=== PATIENT | male | born 1985 | race Caucasian/White ===

== ENCOUNTER → 2017-01-31 | Outpatient (CLI) | payer OTHER ==
--- NOTE | 2017-01-31 16:06 | RADRPT ---
EXAM DATE/TIME: 01/31/2017 15:10 [place] COMPARISON: No previous studies available for comparison. INDICATIONS : Abdominal discomfort. MEDICAL HISTORY : Abdominal pain. Kidney reflux. SURGICAL HISTORY : Lateral internal sphincterotomy. ENCOUNTER: Initial ACUITY: 1 week PAIN SCORE: 0/10 LOCATION: Bilateral abdomen. MEASUREMENTS: LIVER: 17.3 cm length COMMON DUCT: 2 mm RIGHT KIDNEY: 10.8 x 5.8 x 5.4 cm LEFT KIDNEY: 7.0 x 5.7 x 5.4 cm SPLEEN: 10.8 cm length AORTA: 1.9cm maximal FINDINGS: The liver and spleen are normal in size and no focal defects are identified. The gallbladder and panc reas are unremarkable. No intrahepatic or extrahepatic ductal dilatation is seen. The left kidney is unremarkable. There is a single stone within the right kidney without hydronephrosis measuring 10 mm. No free fluid is identified. CONCLUSION: 1. 10 mm nonobstructing stone in the right kidney. Exam is otherwise unremarkable Edi Metzger MD on January 31, 2017 at 16:03 Board Certified Radiologist. This report was verified electronically.
== END ==
LOC: HRAD 15:04
PROVIDERS: ATTEND Pediatrics
DX: R10.9 Unspecified abdominal pain (principal)
CPT/HCPCS: 76700